=== PATIENT | male | born 1935 | race Caucasian/White ===

== ENCOUNTER → 2021-07-31 | Outpatient (CLI) | payer MEDICARE, BC ==
--- NOTE | 2021-07-31 14:11 | CARD ---
MR#: [id number] Date of Study: 07/31/2021 Ordering Physician: RAYRAY ALCANTAR, Referring Physician: RAYRAY ALCANTAR, Tech: APPROVED REPORT EXAM Loop Recorder 85-year-old male presented to the office today for a implantable loop recorder for evaluation of long -term atrial fibrillation. INDICATIONS Under 1% lidocaine local anesthesia a 0.5 inch incision was made in the left parasternal space. Next a subcutaneous tunnel was created after which a [employer] implantable loop recorder was placed with appropriate sensing of 0.42 mV. The incision was then closed with Steri-Strips. No acute implicatio ns. CONCLUSION 1. Successful implantation of a Medtr[employer] loop recorder for monitoring of atrial fibrillation Signed by : Rayray Alcantar, Electronically Approved : 07/31/2021 14:11:02
== END | disposition home or self-care (01) ==
LOC: LINQ 09:47
PROVIDERS: ATTEND Internal Medicine Cardiovascular Disease
DX: I48.91 Unspecified atrial fibrillation (principal)
CPT/HCPCS: 33285; C1764